=== PATIENT | female | born 1975 | race Asian ===

== ENCOUNTER 2023-10-29 06:33 | Day surgery (SDC) | payer MEDICAID ==
[~2023-10-29] VITALS: Ht 160 cm; Wt 55.3 kg
[2023-10-29] MEDS ORDERED: MIDAZOLAM HCL 5 MG/5 ML VIAL ONE (07:51)
[2023-10-29] MEDS ORDERED: MEPERIDINE 100 MG INJ. 100 MG/ML VIAL ONE (07:51)
[2023-10-29] MEDS ORDERED: SIMETHICONE 40 MG/0.6 ML ML ONE (07:52)
[2023-10-29 08:26] LABS: HCG,QUAL RESULT NEGATIVE (NEGATIVE)
[2023-10-29] MEDS ORDERED: fentaNYL CITRATE/PF 100 MCG/2 ML AMP ONE (08:40)
[2023-10-29 11:51] VITALS: O2SAT 98
[2023-10-29 14:08] VITALS: BP_SYST 123; PULSE 47; RESP 12
== END 2023-10-29 09:48 | disposition home or self-care (01) ==
LOC: SDS 06:33 → SMU 06:40 → SDS 09:48
PROVIDERS: ATTEND Internal Medicine
DX: Z12.11 Encounter for screening for malignant neoplasm of colon (principal); D12.2 Benign neoplasm of ascending colon; K64.8 Other hemorrhoids; K64.4 Residual hemorrhoidal skin tags; Z87.891 Personal history of nicotine dependence; Z91.041 Radiographic dye allergy status; Z91.013 Allergy to seafood; Z98.890 Other specified postprocedural states
CPT/HCPCS: 45385; 99152; 84703; 88305; G0378; J2250; J3010; J2175